=== PATIENT | female | born 1950 | race Caucasian/White ===

== ENCOUNTER 2020-06-21 11:34 | Emergency (ER) | payer OTHER, SELFPAY ==
[2020-06-21 11:53] VITALS: BP 175/104; PULSE 80; RESP 20; TEMP 36.7; O2SAT 96
[2020-06-21 12:20] LABS: Basophils Absolute Auto 0.1 K/mm3 (0.0-0.1); Basophils Percent Auto 0.7 % (0.2-1.2); Eosinophils Absolute Auto 0.1 K/mm3 (0-0.3); Eosinophils Percent Auto 1.4 % (0-4.4); Hematocrit 38.2 % (37.0-47.0); Hemoglobin 12.8 g/dL (12.0-15.0); Immature Granulocyte Absolute 0.03 K/mm3 (0.00-0.031); Immature Granulocyte Percent A 0.4 % (0-0.5); Lymphocytes Absolute Auto 1.54 K/mm3 (0.9-3.2); Mean Corpuscular HGB Conc 33.5 g/dl (32-36); Mean Corpuscular Hemoglobin 27.1 pg (26-34); Mean Corpuscular Volume 80.9 fl (80-100); Mean Platelet Volume 10.2 fl (7.4-10.4); Monocytes Absolute Auto 0.4 K/mm3 (0.1-0.6); Monocytes Percent Auto 4.9 % (2.6-8.5); Neutrophils Absolute Auto 5.6 K/mm3 (1.3-6.7); Neutrophils Percent Auto 72.6 % (45.5-73.1); Platelet Count Result 242 k/mm3 (150-375); Red Blood Count 4.72 M/mm3 (4.2-5.4); Red Cell Distribution Width 13.9 % (11.5-14.5); White Blood Count 7.7 K/mm3 (4.5-10.0)
[2020-06-21 12:32] LABS: Alanine Aminotransferase 19 U/L (4-35); Albumin Level 4.1 g/dL (3.5-5.1); Alkaline Phosphatase 88 U/L (38-126); Anion Gap 9 mmol/L (8-16); Aspartate Amino Transferase 22 U/L (14-36); Bilirubin,Total 0.4 mg/dL (0.2-1.3); Blood Urea Nitrogen 13 mg/dL (7-17); Carbon Dioxide 25 mmol/L (22-30); Chloride 104 mmol/L (98-107); Estimated CRCL calculation 73 ml/min; Estimated Glomerular Filt Rate > 60; Glucose 156 mg/dL (65-105); Lipase 63 U/L (23-300); Potassium 3.9 mmol/L (3.4-5.0); Sodium 138 mmol/L (137-145)
[2020-06-21 12:53] LABS: Add Urine Microscopic? YES; Appearance Urine Clear (Clear); Bilirubin Urine Negative (Negative); Blood Urine Negative (Negative); Color Urine Yellow (Yellow); Glucose Urine UA Negative (Negative); Ketones Urine Negative (Negative); Leukocyte Esterase Ur Negative LEU/UL (Negative); Nitrate Urine Negative (Negative); Protein Urine 1+ mg/dL (Negative); RBC Urine 0-2 /hpf (0-2); Specific Grav Ur 1.015 (1.001-1.035); Squamous Epithelial Cell Urine Rare /hpf (Few); Urobilinogen Urine Negative mg/dL (<2.0); WBC Urine 0-3 /hpf
--- NOTE | 2020-06-21 14:29 | PC.NURSE ---
Patient comes to ED intake desk and states that she has called and is going to see her PMD at this time. She does not wish to be seen in the ED and is leaving at this time.
== END 2020-06-21 14:29 | disposition left against medical advice (07) ==
PROVIDERS: Emergency Provider Emergency Medicine
DX: R51.9 Headache, unspecified (principal)
CPT/HCPCS: 36415; 80053; 81001; 83690; 85025; 99199

== ENCOUNTER 2020-10-26 13:04 | Emergency (ER) | payer MEDICARE, OTHER, SELFPAY ==
--- NOTE | ~2020-10-26 | XR_ITS ---
EXAMINATION: XR chest 2V DATE: 10/26/2020 13:52 INDICATION: Chest pain. Cough and shortness of breath. TECHNIQUE: Frontal and lateral views of the chest were obtained. COMPARISON: Chest 2 views 03/17/2008 FINDINGS: The chest demonstrates clear lungs without pneumonia, pleural effusion, or pneumothorax. Th e heart size is normal. IMPRESSION: 1. No acute cardiopulmonary disease. Reviewed, dictated and finalized at location A. LEVEL DESIGNER
--- NOTE | ~2020-10-26 | CT_ITS ---
EXAMINATION: CTA chest PE protocol DATE: 10/26/2020 15:28 STRENGTH AND CONDITIONING COACH INDICATION: Chest pain TECHNIQUE: Computed tomographic angiography (CTA) of the chest was performed with 100 mL Omnipaque-35 0 intravenous contrast. The dose-length product was 895.16 mGy-cm. Maximum intensity projection 3D-re constructions of the aorta and other arteries were constructed by the technologist on a separate work station. Automated exposure control and iterative reconstruction technique were employed. COMPARISON: None. FINDINGS: Study technically limited for evaluation of the lower lobe peripheral pulmonary arteries du e to motion. No central pulmonary embolism. No thoracic lymphadenopathy. There is atherosclerosis. Ca rdiomegaly. No pleural or pericardial effusion. No evidence for aortic aneurysm or dissection. No per ipheral airspace consolidation. No suspicious pulmonary nodules or masses. No pneumothorax.There is a lytic defect in T9. No sclerotic lesions. Mild thoracic spondylosis. IMPRESSION: 1. No acute cardiopulmonary disease. No large central pulmonary embolism. 2: Lytic defect of T9. Cannot exclude metastatic disease or myeloma. Reviewed, dictated and finalized at location A. NGTH AND CONDITIONING COACH
--- NOTE | ~2020-10-26 | CT_ITS ---
EXAMINATION: CT brain wo con DATE: 10/26/2020 15:21 INDICATION: Headache. Generalized chest pain. TECHNIQUE: Computed tomography (CT) of the abdomen and pelvis was performed without intravenous contr ast. The dose-length product was 605.33 mGy-cm. Automated exposure control and iterative reconstructi on technique were employed. COMPARISON: None. FINDINGS: Generalized atrophy. There are scattered mild periventricular and subcortical white matter changes, most likely related to small vessel ischemic disease (microangiopathy). No acute intracrania l hemorrhage, infarction, mass or mass effect. There is intracranial atherosclerosis. IMPRESSION: 1. No acute intracranial abnormality. 2: Chronic age-related findings. Reviewed, dictated and finalized at location A. ING ASSISTANT
[2020-10-26 13:08] VITALS: BP 193/30; PULSE 84; RESP 16; TEMP 36.3; O2SAT 99
--- NOTE | 2020-10-26 13:16 | ECG_ITS ---
Measurements Intervals [place] Rate: 81 P: 29 CT: 186 QRS: -39 QRSD: 108 T: 41 QT: 347 QTc: 404 Interpretive Statements SINUS RHYTHM LEFT AXIS DEVIATION INCOMPLETE RIGHT BUNDLE BRANCH BLOCK POOR R WAVE PROGRESSION, ANTERIOR LEADS BASELINE ARTIFACT- II, III, AVL, AVF BORDERLINE ECG Electronically Signed On 10-26-2020 15:45:47 AUTOMOTIVE ENGINEERING TEACHER by Soham Cole D.O.
[2020-10-26] MEDS: ASPIRIN 81 MG CHEWABLE TABLET 243 MG PO (13:19)
--- NOTE | 2020-10-26 13:29 | ED.CHESTPAIN ---
HPI - Chest Pain General Chief Complaint: Chest Pain Stated Complaint: Chest Pain, Dizzy Time Seen by Provider: 10/26/20 13:28 History of Present Illness HPI narrative: 69 yo female presents to the ED for dizziness. Approximately 40 minutes prior to coming in she suddenly became very dizzy. She felt like she was going to pass out. This was associated with heaviness in her chest, which she says was not painful. No exacerbating or alleviating factors identified. Symptoms are improving. Related Data Home Medications Medication Instructions Recorded Confirmed albuterol sulfate 10/26/20 albuterol sulfate [Ventolin HFA] INHALATION 10/26/20 benzonatate mg PO 10/26/20 clonidine HCl 10/26/20 diltiazem HCl PO 10/26/20 fluticasone propion-salmeterol INHALATION 10/26/20 [Advair Diskus] glipizide mg PO 10/26/20 hydralazine 10/26/20 hydrochlorothiazide 10/26/20 hydrocodone-acetaminophen 10/26/20 hyoscyamine sulfate mg PO 10/26/20 insulin glargine [Basaglar KwikPen SUBCUT 10/26/20 U-100 Insulin] insulin glargine [Lantus Solostar SUBCUT 10/26/20 U-100 Insulin] insulin lispro [Humalog KwikPen unit SUBCUT 10/26/20 Insulin] losartan 10/26/20 meloxicam 10/26/20 metformin mg PO 10/26/20 methocarbamol mg 10/26/20 montelukast mg 10/26/20 pantoprazole PO 10/26/20 pen needle, diabetic [BD 10/26/20 10/26/20 Ultra-Fine Mini Pen Needle] potassium chloride meq PO 10/26/20 rosuvastatin mg 10/26/20 sucralfate 10/26/20 Allergies Allergy/AdvReac Type Severity Reaction Status Date / Time erythromycin base Allergy Rash Verified 10/26/20 13:11 [facility] Past Medical History Medical History HTN (hypertension) IBS (irritable bowel syndrome) Surgical History Surgical History H/O: hysterectomy Social History Social History Gender identity (if verbalized by the patient): Male Exam Const: General: no acute distress and alert Nutritional Appearance: overweight Orientation/consciousness: patient oriented x3 HENMT: Head: normal to inspection Neck: Neck: normal visual inspection Chest: Chest palpation & inspection: tenderness Resp: Effort & Inspection: normal respiratory effort Auscultation: clear to auscultation bilaterally, no rales, no rhonchi and no wheezes Cardio: Jugular venous distension: no JVD Rate: regular rate Rhythm: regular rhythm Heart sounds: no murmurs GI: Inspection: non-distended GI Palp: Yes Soft to palpation and No Tenderness to palpation present (GI) Skin: General skin exam: normal color Neuro: General: patient oriented x3 and moves all extremities Speech: normal speech Extrem: General: no edema Psych: Appearance: well kempt Affect: normal affect Course Vital Signs Vital signs: Vital Signs Temperature 36.3 C L 10/26/20 13:08 Pulse Rate 84 10/26/20 13:08 Respiratory Rate 16 10/26/20 13:08 Blood Pressure 193/30 H 10/26/20 13:08 Pulse Oximetry 99 10/26/20 13:08 Temperature 36.3 C L 10/26/20 13:08 Pulse Rate 82 10/26/20 17:39 Respiratory Rate 18 10/26/20 17:39 Blood Pressure 157/86 H 10/26/20 17:39 Pulse Oximetry 98 10/26/20 17:39 MDM - Chest Pain MDM Narrative Medical decision making narrative: Primary symptoms was light headedness, which has resolved. Chest symptoms not painful and very atypical for anginal pain. No acute findings on EKG. Labs reassuring. CTA negative for PE. Patient and PCP notified of lesion on CT. Disc with imaging provide at their request. Medical Records Data Attestation: I reviewed the patient's medical records. Lab Data Attestation: I reviewed the patient's lab results. Result diagrams: 10/26/20 13:31 10/26/20 13:31 Labs: Lab Results 10/26/20 10/26/20 10/26/20 Range/Units 13:31 13:31
[2020-10-26 13:37] LABS: Basophils Absolute Auto 0.1 K/mm3 (0.0-0.1); Eosinophils Absolute Auto 0.1 K/mm3 (0-0.3); Eosinophils Percent Auto 1.7 % (0-4.4); Hematocrit 38.3 % (37.0-47.0); Hemoglobin 12.6 g/dL (12.0-15.0); Immature Granulocyte Absolute 0.02 K/mm3 (0.00-0.031); Immature Granulocyte Percent A 0.4 % (0-0.5); Lymphocytes Absolute Auto 1.68 K/mm3 (0.9-3.2); Lymphocytes Percent Auto 31.9 % (18.3-44.2); Mean Corpuscular HGB Conc 32.9 g/dl (32-36); Mean Corpuscular Hemoglobin 27.2 pg (26-34); Mean Corpuscular Volume 82.7 fl (80-100); Monocytes Absolute Auto 0.3 K/mm3 (0.1-0.6); Monocytes Percent Auto 6.5 % (2.6-8.5); Neutrophils Absolute Auto 3.1 K/mm3 (1.3-6.7); Neutrophils Percent Auto 58.5 % (45.5-73.1); Platelet Count Result 232 k/mm3 (150-375); Red Blood Count 4.63 M/mm3 (4.2-5.4); Red Cell Distribution Width 13.3 % (11.5-14.5); White Blood Count 5.3 K/mm3 (4.5-10.0)
[2020-10-26 13:47] LABS: Prothrombin Time 13.4 Seconds (11.1-14.7)
[2020-10-26 13:49] LABS: Anion Gap 6 mmol/L (8-16); Blood Urea Nitrogen 17 mg/dL (7-17); Calcium 10.2 mg/dL (8.4-10.2); Carbon Dioxide 27 mmol/L (22-30); Chloride 105 mmol/L (98-107); Estimated CRCL calculation 66 ml/min; Estimated Glomerular Filt Rate > 60; Glucose 184 mg/dL (65-105); Potassium 3.9 mmol/L (3.4-5.0); Sodium 138 mmol/L (137-145)
[2020-10-26] MEDS: METOCLOPRAMIDE HCL INJ 10 MG/2 ML VIAL IV PUSH (14:00)
[2020-10-26 14:01] LABS: Troponin I < 0.012 ng/mL (0.000-0.034)
[2020-10-26] MEDS: KETOROLAC 30 MG/ML VIAL (*BKC) IV PUSH (15:03)
[2020-10-26 15:43] VITALS: BP 122/77; PULSE 69; O2SAT 98
[2020-10-26 16:29] LABS: Alanine Aminotransferase 14 U/L (4-35); Albumin Level 3.7 g/dL (3.5-5.1); Alkaline Phosphatase 82 U/L (38-126); Aspartate Amino Transferase 22 U/L (14-36); Bilirubin,Total 0.3 mg/dL (0.2-1.3)
[2020-10-26 16:41] LABS: Troponin I < 0.012 ng/mL (0.000-0.034)
[2020-10-26 17:39] VITALS: BP 157/86; PULSE 82; RESP 18; O2SAT 98
== END 2020-10-26 17:41 | disposition home or self-care (01) ==
PROVIDERS: Emergency Provider Emergency Medicine
DX: R55 Syncope and collapse (principal); R07.89 Other chest pain; I10 Essential (primary) hypertension; K58.9 Irritable bowel syndrome, unspecified; Z79.4 Long term (current) use of insulin; R93.7 Abnormal findings on diagnostic imaging of other parts of musculoskeletal system; I45.10 Unspecified right bundle-branch block; R94.31 Abnormal electrocardiogram [ECG] [EKG]
CPT/HCPCS: 36415; 70450; 71046; 71275; 80048; 80076; 84484; 85025; 85610; 85730; 93005; 96365; 96375; 99284; A9270; J0131; J1885; J2765; Q9967

== ENCOUNTER → 2021-08-12 08:11 | Outpatient (CLI) | payer MEDICARE, OTHER, SELFPAY ==
[2021-08-13 03:58] LABS: SARS-CoV-2 RNA PCR Negative
== END ==
DX: R05.9 Cough, unspecified (principal); R09.81 Nasal congestion; R68.89 Other general symptoms and signs; Z20.822 Contact with and (suspected) exposure to COVID-19
CPT/HCPCS: C9803; U0003; U0005

== ENCOUNTER 2021-09-24 13:13 | Emergency (ER) | payer MEDICARE, OTHER, SELFPAY ==
--- NOTE | ~2021-09-24 | XR_ITS ---
EXAMINATION: XR chest 2V EXAM DATE: 09/24/2021 13:59 INDICATION: Heart palpitations. TECHNIQUE: Frontal and lateral projections of the chest obtained and reviewed. Comparison is made to prior examination from 10/26/2020. FINDINGS: The lungs are clear. There are no pleural effusions. The cardiomediastinal silhouette is within normal limits. There is no pneumothorax suspected. The bones and soft tissues are unremarkab le. IMPRESSION: No acute cardiopulmonary findings. Reviewed, dictated and finalized at location B. GE DECKHAND
--- NOTE | 2021-09-24 13:17 | ECG_ITS ---
Measurements Intervals [place] Rate: 66 P: 31 [place]: 165 QRS: -48 QRSD: 117 T: 34 QT: 352 QTc: 370 Interpretive Statements SINUS RHYTHM LOW QRS VOLTAGE IN PRECORDIAL LEADS INCOMPLETE RIGHT BUNDLE BRANCH BLOCK LEFT ANTERIOR FASCICULAR BLOCK POOR R WAVE PROGRESSION, CONSIDER ANTERIOR INFARCT BORDERLINE ST ABNORMALITY- HIGH LATERAL LEADS BASELINE ARTIFACT- I, II, III, AVF, V2-V6 ABNORMAL ECG Electronically Signed On 09-24-2021 13:33:45 ACQUISITION ANALYST by Soham Cole D.O.
[2021-09-24 13:41] VITALS: BP 176/81; PULSE 68; RESP 16; TEMP 36.2; O2SAT 98
[2021-09-24 13:59] LABS: Basophils Percent Auto 0.2 % (0.2-1.2); Eosinophils Percent Auto 0.2 % (0-4.4); Hematocrit 41.4 % (37.0-47.0); Hemoglobin 14.5 g/dL (12.0-15.0); Immature Granulocyte Absolute 0.15 K/mm3 (0.00-0.031); Immature Granulocyte Percent A 1.2 % (0-0.5); Lymphocytes Absolute Auto 1.25 K/mm3 (0.9-3.2); Lymphocytes Percent Auto 10.1 % (18.3-44.2); Mean Corpuscular Hemoglobin 30.8 pg (26-34); Mean Corpuscular Volume 87.9 fl (80-100); Mean Platelet Volume 10.7 fl (7.4-10.4); Monocytes Absolute Auto 0.4 K/mm3 (0.1-0.6); Monocytes Percent Auto 3.4 % (2.6-8.5); Neutrophils Absolute Auto 10.5 K/mm3 (1.3-6.7); Neutrophils Percent Auto 84.9 % (45.5-73.1); Platelet Count Result 222 k/mm3 (150-375); Red Blood Count 4.71 M/mm3 (4.2-5.4); Red Cell Distribution Width 12.2 % (11.5-14.5); White Blood Count 12.4 K/mm3 (4.5-10.0)
[2021-09-24 14:10] LABS: INR 0.9; Partial Thromboplastin Time 24.7 SECONDS (22.3-36.8); Prothrombin Time 12.3 Seconds (11.1-14.7)
[2021-09-24 14:18] LABS: Alanine Aminotransferase 19 U/L (4-35); Albumin Level 3.8 g/dL (3.5-5.1); Alkaline Phosphatase 102 U/L (38-126); Anion Gap 7 mmol/L (8-16); Aspartate Amino Transferase 18 U/L (14-36); Bilirubin,Total 0.4 mg/dL (0.2-1.3); Blood Urea Nitrogen 22 mg/dL (7-17); Calcium 9.8 mg/dL (8.4-10.2); Carbon Dioxide 22 mmol/L (22-30); Chloride 105 mmol/L (98-107); Estimated CRCL calculation 69 ml/min; Estimated Glomerular Filt Rate > 60; Glucose 251 mg/dL (65-110); Lipase 114 U/L (23-300); Potassium 3.5 mmol/L (3.4-5.0); Sodium 134 mmol/L (137-145)
[2021-09-24 14:25] LABS: Troponin I < 0.012 ng/mL (0.000-0.034)
[2021-09-24 17:34] VITALS: PULSE 64; RESP 16; O2SAT 98
--- NOTE | 2021-09-24 17:41 | ED.ARRPALP ---
HPI - Arrhythmia/Palpitations General Chief Complaint: Arrhythmia/Palpitations Stated Complaint: heart racing, Time Seen by Provider: 09/24/21 17:29 Source: patient Mode of arrival: ambulatory Limitations: no limitations History of Present Illness HPI narrative: Patient is a 70-year-old female complaining of her heart rate jumping , started earlier today but now resolved. Patient states that she felt like her heart rate was in the 40s earlier, states that her heart is usually between high 50s and low 60s. Patient denied any symptoms with her irregular heart rate. Patient denies any chest pain, shortness of breath, abdominal pain, nausea, vomiting, diaphoresis, fever or chills. Patient states that she was recently placed on antibiotic for 2 weeks and had her last dose. Patient also states that she is currently on steroids due to viral infection , history of asthma and COPD. Related Data Home Medications Medication Instructions Recorded Confirmed albuterol sulfate 10/26/20 albuterol sulfate [Ventolin HFA] INHALATION 10/26/20 benzonatate mg PO 10/26/20 clonidine HCl 10/26/20 diltiazem HCl PO 10/26/20 fluticasone propion-salmeterol INHALATION 10/26/20 [Advair Diskus] glipizide mg PO 10/26/20 hydralazine 10/26/20 hydrochlorothiazide 10/26/20 hydrocodone-acetaminophen 10/26/20 hyoscyamine sulfate mg PO 10/26/20 insulin glargine [Basaglar KwikPen SUBCUT 10/26/20 U-100 Insulin] insulin glargine [Lantus Solostar SUBCUT 10/26/20 U-100 Insulin] insulin lispro [Humalog KwikPen unit SUBCUT 10/26/20 Insulin] losartan 10/26/20 meloxicam 10/26/20 metformin mg PO 10/26/20 methocarbamol mg 10/26/20 montelukast mg 10/26/20 pantoprazole PO 10/26/20 pen needle, diabetic [BD 10/26/20 10/26/20 Ultra-Fine Mini Pen Needle] potassium chloride meq PO 10/26/20 rosuvastatin mg 10/26/20 sucralfate 10/26/20 Allergies Allergy/AdvReac Type Severity Reaction Status Date / Time erythromycin base Allergy Rash Verified 10/26/20 13:11 Review of Systems Review of Systems: All systems reviewed & are unremarkable except as noted in HPI and below Constitutional: Constitutional: Denies body ache(s), Denies chills, Denies excessive sweating, Denies fatigue, Denies fever(s), Denies headache(s), Denies lethargy, Denies malaise, Denies weakness and Denies weight loss Eyes: Eyes: Denies blurry vision, Denies change in vision and Denies loss of vision ENT: Denies dizziness, Denies ear discharge, Denies headache(s), Denies lip swelling, Denies epistaxis, Denies nasal congestion, Denies neck pain, Denies throat swelling and Denies tongue swelling Cardiovascular: Cardiovascular: Denies chest pain, Denies chest pain at rest, Denies chest pain with activity, Denies diaphoresis, Denies rapid heart rate, Denies edema, Denies lightheadedness, Denies palpitations, Denies dyspnea and Denies dyspnea on exertion Respiratory: Respiratory: Denies chest congestion, Denies cough, Denies hemoptysis, Denies dyspnea and Denies dyspnea on exertion Gastrointestinal: Gastrointestinal: Denies abdominal pain, Denies melena, Denies hematochezia, Denies diarrhea, Denies nausea, Denies vomiting and Denies hematemesis Musculoskeletal: Musculoskeletal: Denies abnormal gait, Denies deformity, Denies joint swelling, Denies limited range of motion, Denies neck pain and Denies numbness Neurologic: Denies Abnormal speech present, Denies abnormal gait, Denies confusion, Denies dizziness, Denies headache(s), Denies focal weakness, Denies loss of vision, Denies numbness, Denies Other visual disturbances, Denies Sensory deficit (Neuro) and Denies weakness Psychiatric: Psychiatric: Denies confusion, Denies depression, Denies auditory hallucinations, Denies homicidal ideation and Denies suicidal ideation Endocrine: Endocrine: Denies cold intolerance, Denies excessive sweating, Denies fatigue, Denies heat intolerance and Denies palpitations Hematologic/Lymp
[2021-09-24 18:12] LABS: Troponin I < 0.012 ng/mL (0.000-0.034)
[2021-09-24] MEDS: LACTATED RINGERS 1,000 ML 999 ML IV CONT (18:32)
[2021-09-24 19:16] VITALS: BP 112/78; PULSE 54; RESP 18; O2SAT 99
== END 2021-09-24 19:18 | disposition home or self-care (01) ==
PROVIDERS: Emergency Medicine; Emergency Provider Emergency Medicine
DX: R00.2 Palpitations (principal); R00.1 Bradycardia, unspecified; B37.3 Candidiasis of vulva and vagina; I10 Essential (primary) hypertension; J44.9 Chronic obstructive pulmonary disease, unspecified; K58.9 Irritable bowel syndrome, unspecified; E11.9 Type 2 diabetes mellitus without complications; E78.00 Pure hypercholesterolemia, unspecified; Z79.4 Long term (current) use of insulin; Z79.84 Long term (current) use of oral hypoglycemic drugs; I45.2 Bifascicular block; R94.31 Abnormal electrocardiogram [ECG] [EKG]
CPT/HCPCS: 36415; 71046; 80053; 83690; 84484; 85025; 85610; 85730; 93005; 96360; 99284; J7120